=== PATIENT | male | born 1985 | race Caucasian/White ===

== ENCOUNTER 2017-08-18 19:41 | Inpatient (IN) | payer OTHER ==
[2017-08-18] MEDS ORDERED: LIDOCAINE 1% 10 ML VIAL INJ ONE (19:49)
[2017-08-18] MEDS ORDERED: ONDANSETRON INJ 4 MG/2 ML VIAL IV ONE (20:04)
[2017-08-18] MEDS ORDERED: MORPHINE SULFATE INJ 10 MG/ML VIAL IV ONE (20:04)
[2017-08-18] MEDS ORDERED: CLINDAMYCIN IV 600MG 600 MG in PREMIX BAG 1 BAG IVPB ONE (20:05)
--- NOTE | 2017-08-18 20:08 | ED.PDOC ---
History of Present Illness - General Chief Complaint: Skin/Abrasion/Tear Stated Complaint: spider bite to groin Time Seen by Provider: 08/18/17 19:46 Source: patient - History of Present Illness Timing/Duration: other - three days Severity: severe Location: genitalia - bilateral inguinal swelling and wounds Improving Factors: nothing Worsening Factors: movement Associated Symptoms: swelling/mass/lumps Allergies/Adverse Reactions: Allergies msg Allergy (Uncoded 08/18/17 19:59) narcotics Adverse Reaction (Uncoded 08/18/17 19:59) Home Medications: Ambulatory Orders Sulfamethoxazole-Trimethoprim [Bactrim Ds 800-160 mg] 1 tablet PO BID 08/18/17 Review of Systems - Review of Systems Constitutional: Denies: fever, weakness EENTM: States: no symptoms reported Respiratory: States: no symptoms reported Cardiology: States: no symptoms reported Gastrointestinal/Abdominal: Denies: abdominal pain, nausea, vomiting Genitourinary: States: pain - worse on L side. Denies: dysuria, frequency Musculoskeletal: States: no symptoms reported Skin: States: see HPI Neurological: States: no symptoms reported Endocrine: States: no symptoms reported Hematologic/Lymphatic: States: no symptoms reported Past Medical History (General) - Patient Medical History Hx MRSA: No - had spider bite in past - Vaccination History Hx Tetanus, Diphtheria Vaccination: - unknown - Triage Comment ED Triage Comment: left groin area hard and redenned, right side with two raised areas, not as swollen as left Family Medical History - Family History Father Family History: Unknown Physical Exam - Physical Exam General Appearance: Alert, Anxious, Obvious distress Eyes, Ears, Nose, Throat Exam: PERRL/EOMI Gastrointestinal/Abdominal: normal bowel sounds, non tender, soft Extremity: normal range of motion, non-tender, normal inspection Skin Problem Location: other - inguinal areas Skin Character: erythema, lesion - ulcerative , swelling, tenderness, warm Lymphatic: inguinal node tender (R), inguinal node tender (L) Departure - Departure Clinical Impression: Cellulitis Qualifiers: Site of cellulitis: trunk Site of cellulitis of trunk: groin Qualified Code(s) : L03.314 - Cellulitis of groin Disposition: Admit Patient Departure Forms: ED Discharge - Pt. Copy, Patient Portal Self Enrollment Instructions: DI for Abrasion Home Medications: Ambulatory Orders Sulfamethoxazole-Trimethoprim [Bactrim Ds 800-160 mg] 1 tablet PO BID 08/18/17 Decision To Admit - Decistion To Admit Decision to Admit Date: 08/18/17 Decision to Admit Time: 22:41
[2017-08-18] MEDS ORDERED: CLINDAMYCIN IV 600MG 50 ML IVPB ONE (20:12)
[2017-08-18] MEDS ORDERED: ACETAMINOPHEN 325 MG TAB PO ONE (21:21)
--- NOTE | 2017-08-18 22:26 | CT ---
EXAMINATION: POSTCONTRAST PELVIC CT EXAMINATION. REFERRAL DIAGNOSIS: Left inguinal pain and swelling. COMPARISONS: No comparisons are available. PROCEDURE: Using low-dose helical technique, thin section axial images were performed through the pelvis after the uncomplicated intravenous administration of nonionic iodinated contrast material. No oral contrast was administered. FINDINGS: Extensive left inguinal fatty inflammation without associated metallic foreign body or soft tissue gas. This subcutaneous fatty inflammation does not extend into the perineum. Suspect this inflammation extends partially into the left scrotum. No left inguinal hernia. The appendix clearly visualized and is normal. No diverticulitis or evidence of inflammatory bowel disease. The nondistended urinary bladder is grossly normal. No free pelvic fluid or evidence of psoas muscle abscess. Bones of the pelvis are normal. IMPRESSION: 1. Left inguinal fatty inflammation without radiopaque foreign body, soft tissue gas or mature abscess cavity. Inflammation does not extend into the perineum. Suspect this subcutaneous fatty inflammation extends partially into the left scrotum. 2. No evidence of appendicitis, diverticulitis, inflammatory bowel disease or free pelvic fluid. This exam was performed according to our departmental dose-optimization program, which includes automated exposure control, adjustment of the mA and/or kV according to patient size and/or use of iterative reconstruction technique. Electronically signed by: Eugenio Andrews MD 08/18/2017 10:25 PM CDT
--- NOTE | 2017-08-18 23:05 | HP ---
SUPERVISING PHYSICIAN: Efrain Velasquez MD CHIEF COMPLAINT: "Spider bite in my groin." HISTORY OF PRESENT ILLNESS: This is a 31-year-old male patient who came to the Emergency Room due to "spider bite to the groin." He notes that he had about a 3 day history of swelling and redness to bilateral groins, left greater than right. He states he has been living in a house that is pretty much infested with spiders. Yesterday, he went to see the Urgent Care and he actually got an injection and was placed on Bactrim. However, he states it started to get worse , so he came to the Emergency Room. In the Emergency Room, Dr. John did a CT of the pelvis which showed left inguinal fatty inflammation with no gas or abscess cavity. The inflammation did not extend to the peritoneum. It did state that it extended partially into the left scrotum, but due to the fact that he had worsened despite being on antibiotics and getting the antibiotic injection yesterday, he will be admitted for cellulitis which failed outpatient therapy. He states he has had a fever as well and generally not feeling well. On examination, the patient is without distress. He is alert and oriented. PAST MEDICAL HISTORY: Previous staph infections and actual I&D secondary to this on the left leg before due to "spider bites." CURRENT MEDICATIONS: He was recently placed on Bactrim, otherwise, no medications. ALLERGIES: NARCOTICS AND MSG. FAMILY HISTORY: Cardiac disease on his father's side and diabetes in his mother. SOCIAL HISTORY: The patient smokes half a pack per day. No alcohol, no illicit drugs. REVIEW OF SYSTEMS: CONSTITUTIONAL: Positive for fever and chills. No recent weight loss or weight gain. HEENT: No headaches, vision changes, ear pain or throat pain. RESPIRATORY: No cough, hemoptysis or pleuritic chest pain. CARDIOVASCULAR: No chest pain, palpitations or peripheral edema. GASTROINTESTINAL: No nausea, vomiting, diarrhea, constipation or abdominal pain. GENITOURINARY: No dysuria, frequency or flank pain. SKIN: History of staph infections in the past and the current problems as per history of present illness. HEMATOLOGIC: No easy bruising and no transfusion reaction. ENDOCRINE: No polydipsia, polyuria, polyphagia. No heat or cold intolerance. NEUROLOGIC: No syncope, paresthesias, seizures. PHYSICAL EXAMINATION: VITAL SIGNS: Blood pressure 107/54. Heart rate 97. Respiratory rate 18. Temperature 100.2. Oxygen saturation 98%. GENERAL: Mr. Meadows is a 31-year-old male patient who is in no active distress currently. HEENT: Normocephalic, atraumatic. Pupils are equal and reactive. No nasal drainage. Throat with moist mucosa. NECK: Supple. Midline trachea. No jugular venous distention. CHEST: Symmetrical with equal rise and fall of the chest with inspiration and expiration. Lung sounds are clear to auscultation bilaterally. CARDIOVASCULAR: Regular rate and rhythm. Normal S1, S2. ABDOMEN: Soft. Positive bowel sounds. GENITOURINARY: Normal external genitalia. He obviously shaves his pubic hair. He has some erythema with open pustules on the right groin which are draining a slight purulent drainage. Left groin with erythema and firmness and warmth to the touch. The area is approximately 4 cm by 2.5 cm. Tender to touch. EXTREMITIES: Lower extremities with good peripheral pulses. Capillary refill is less than 2 seconds. NEUROLOGIC: The patient is alert and oriented. Moves all extremities. Extraocular movements are intact. LABORATORY: White count 14,400, hemoglobin 13.8, hematocrit 40.7, platelet count 286. Chemistry shows sodium 136, potassium 4.0, chloride 103, CO2 24, BUN 20, creatinine 1.15, glucose 107, calcium 9.7, lactic acid 1.8. RADIOLOGY: CT results are as above. ASSESSMENT: 1. Bilateral groin cellulitis, left greater than right without CT evidence of of abscess. 2. History of methicillin-resistant Staphylococcus aureus infections requiring I&D. 3. Nicotine dependency. PLAN: At this point, the patient has been given clindamycin in the Emergency Room. It sounds like he has gotten some Bactrim as an outpatient as well as injection of probably Rocephin I would imagine. Due to failed outpatient therapy, I am going to add vancomycin as well due to his history of methicillin- resistant Staphylococcus aureus. We will reevaluate in the morning. If he has not had any improvement whatsoever, then we will probably get surgery to take a look at him even though there is no actual abscess. DVT and GI ulcer prophylaxis. #[id number] [facility]
[2017-08-18] MEDS ORDERED: SODIUM CHLORIDE 0.9% (FLUSH) 10 ML SYG IV PRN (23:18)
[2017-08-18] MEDS ORDERED: VANCOMYCIN PER PHARMACY INJ SCH (23:30)
[2017-08-19] MEDS: LACTATED RINGERS 1,000 ML IVS PRN ×2 (00:01→11:20)
[2017-08-19] MEDS ORDERED: VANCOMYCIN HCL INJ 500 MG VIAL ONE ×2 (01:46→13:33)
[2017-08-19] MEDS ORDERED: VANCOMYCIN HCL INJ 1,000 MG VIAL IVPB ONE ×2 (01:47→13:34)
[2017-08-19] MEDS ORDERED: SODIUM CHLORIDE 0.9% 250ML 250 ML ONE ×2 (01:47→13:34)
[2017-08-19] MEDS: VANCOMYCIN HCL INJ 1,000 MG, VANCOMYCIN HCL INJ 500 MG in SODIUM CHLORIDE 0.9% 250ML 25... IVPB SCH ×2 (01:55→13:40)
[2017-08-19] MEDS: IV SET AND CAP CHANGE INJ INJ SCH (01:56)
[2017-08-19] MEDS ORDERED: CLINDAMYCIN IV 600MG 50 ML IVPB ONE ×3 (04:08→17:05)
[2017-08-19] MEDS: IBUPROFEN 200 MG TAB PO PRN ×2 (04:11→20:01)
[2017-08-19] MEDS: CLINDAMYCIN IV 600MG 600 MG in PREMIX BAG 1 BAG IVPB SCH ×3 (06:04→17:54)
[2017-08-19] MEDS: ACETAMINOPHEN 325 MG TAB PO PRN ×2 (06:19→18:21)
[2017-08-19] MEDS: BIFIDOBACTERIUM INFANTIS 4 MG CAP PO SCH ×2 (10:32→20:53)
--- NOTE | 2017-08-19 10:57 | PN ---
SUPERVISING PHYSICIAN: Efrain Velasquez MD DATE: 08/19/17 SUBJECTIVE: Really no difference from admission regarding his symptoms. He is still having discomfort and pretty uncomfortable when he moves around, but he is not really requiring any pain medication either. OBJECTIVE: VITAL SIGNS: Blood pressure 125/81. Heart rate 98. Respiratory rate 18. T-max 100.2. O2 saturation 96%. GENERAL: Mr. Meadows is a 31-year-old male patient in no active distress. NEUROLOGIC: Alert and oriented. LUNGS: Clear to auscultation bilaterally. CARDIOVASCULAR: Regular rate and rhythm. Normal S1, S2. ABDOMEN: Soft. Positive bowel sounds. GENITOURINARY: Still reveals the approximately 4 by 2.5 cm area of cellulitis with warmth to the touch in the left groin. The right groin still has some cellulitis, but not to the extent as the left. EXTREMITIES: Pulses 2+. Capillary refill is less than 2 seconds. LABORATORY: Labs are reviewed and show white count 14.3, hemoglobin 12.5, hematocrit 37.8, platelet count 270. Chemistry shows sodium 136, potassium 3.8 , chloride 104, CO2 22, BUN 16, creatinine 1.15, glucose 130, calcium 9.1. ASSESSMENT: 1. Bilateral groin cellulitis, left greater than right. 2. History of methicillin-resistant Staphylococcus aureus infections requiring I&D. 3. Nicotine dependency. PLAN: We will continue the vancomycin as well as the clindamycin. We will continue to monitor his labs to ensure they are improving. I have placed an order in the computer for consult with Dr. Norris so he can evaluate and ensure that he does not feel there needs to be any surgical intervention. As stated before, the CT does not reveal any pockets of abscess, however, this is a pretty aggressive looking cellulitis, so I would feel better if surgery evaluated. I have called his office, but there was no answer at the time, so I am going to continue to try to get a hold of Dr. Norris. #[id number] [facility]
--- NOTE | 2017-08-19 17:15 | CONS ---
HISTORY OF PRESENT ILLNESS: The patient is a 31 year-old male complaining of tender masses in both groins, the right groin has drained, the left groin has not drained, it is quite tender. 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 He was on Bactrim as an outpatient and has not improved, in fact, he has worsened with fever and general feeling of ill health. PAST MEDICAL HISTORY: Unremarkable other than the infections associated with spider bites on his left leg. CURRENT MEDICATIONS: He takes no medications other than the Bactrim as an outpatient. ALLERGIES: NARCOTICS AND MSG FAMILY HISTORY: Positive for diabetes and coronary artery disease. SOCIAL HISTORY: The patient is , father of 3, works in the [employer] business. Previous active duty [employer]. He smokes half a pack of cigarettes a day and is trying to quit. He does not use alcohol or drugs. REVIEW OF SYSTEMS: Unremarkable except as that in the history of present illness. He denies nausea or vomiting or change in his bowel habits. No chest pain, shortness of breath, denies urinary symptoms. PHYSICAL EXAMINATION: GENERAL: The patient is awake and alert, currently afebrile and normotensive. HEENT: Sclera nonicteric and mucous membranes are moist. NECK: Without adenopathy. BACK: Without CVA tenderness. CHEST: There is normal chest wall expansion bilaterally. EXTREMITIES: Without cyanosis, clubbing, or edema. ABDOMEN: Soft, non-tender. GROIN AREA: The left groin reveals an area of induration which involves the tissue medial and above the inguinal fold. It is firm without fluctuance or crepitance. There is no drainage even though there seems to be an area of a small sinus tract. On the right side, the area is much smaller and it has drained from two places and cultures are pending from that. LABORATORY: White count 14.4, hemoglobin 13.8. His potassium was 4, creatinine 1.15. CT scan of the inguinal area revealed no hernias, no abscesses or infected lymph nodes. It is noted that his urine is quite dark. IMPRESSION: 1. Cellulitis of the left an right groins with 2 draining areas on the right, non on the left. 2. History of methicillin resistant staph aureus. 3. Nicotine dependency. The patient is now on vancomycin and clindamycin. Culture is pending. Will continue local care and add twice a day showers to wash these areas. #[id number] [facility]
[2017-08-20] MEDS ORDERED: VANCOMYCIN HCL INJ 500 MG VIAL ONE ×2 (00:12→13:32)
[2017-08-20] MEDS ORDERED: CLINDAMYCIN IV 600MG 50 ML IVPB ONE ×5 (00:12→19:31)
[2017-08-20] MEDS ORDERED: SODIUM CHLORIDE 0.9% 250ML 250 ML ONE ×2 (00:13→13:32)
[2017-08-20] MEDS ORDERED: VANCOMYCIN HCL INJ 1,000 MG VIAL IVPB ONE ×2 (00:13→13:33)
[2017-08-20] MEDS: CLINDAMYCIN IV 600MG 600 MG in PREMIX BAG 1 BAG IVPB SCH ×5 (00:15→23:52)
[2017-08-20] MEDS: VANCOMYCIN HCL INJ 1,000 MG, VANCOMYCIN HCL INJ 500 MG in SODIUM CHLORIDE 0.9% 250ML 25... IVPB SCH ×2 (01:51→13:34)
[2017-08-20] MEDS: IBUPROFEN 200 MG TAB PO PRN ×3 (01:54→21:30)
[2017-08-20] MEDS: LACTATED RINGERS 1,000 ML IVS PRN (06:05)
[2017-08-20] MEDS: BIFIDOBACTERIUM INFANTIS 4 MG CAP PO SCH ×2 (08:41→21:29)
--- NOTE | 2017-08-20 09:14 | PN ---
SUPERVISING PHYSICIAN: Efrain Velasquez MD DATE: 08/20/17 SUBJECTIVE: The patient feels like the wounds in his groin are better although he is more worried about the right side than the left. They are both draining and although they still hurt quite a bit, at least he can sit up and he can move his legs. He denies any nausea or vomiting, chest pain or shortness of breath. 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 At this point, his discharge date is undetermined and we will assist him in making alternative plans depending on his progress. OBJECTIVE: VITAL SIGNS: Afebrile. Heart rate 82. Blood pressure 100/60. Respiratory rate 18. O2 saturation 95% on room air. RESPIRATORY: Essentially clear to auscultation bilaterally. CARDIAC: Regular rate and rhythm. GASTROINTESTINAL: Abdomen is soft, nondistended, nontender. Bowel sounds are positive. SKIN: The left groin has an area with a hardened area of tissue in the inguinal fold. It looks like there is a tiny amount of purulent drainage from that area. It has some erythema, but the area of erythema is smaller than previously marked area on the left groin. On the right groin, there are two smaller areas of induration with a small amount of purulent drainage. Cultures are still pending. LABORATORY: His WBCs are 11.8, hemoglobin 12.1, hematocrit 36. ESR 69. Neutrophils 69.7. Electrolytes are within normal limits with the exception of his glucose is slightly high at 113 and CRP is 10.4. Preliminary blood culture show no growth after 24 hours. His wound culture is pending. All other labs and films have been reviewed via the EMR. ASSESSMENT: 1. Bilateral groin cellulitis, left greater than right. 2. History of methicillin-resistant Staphylococcus aureus infections requiring I&D. 3. Nicotine dependency. PLAN: We will continue present supportive care including continuing with the vancomycin and the clindamycin. We will monitor the labs and I will repeat those in the morning. We are still awaiting culture results on the wound. Dr. Norris is still following him from a wound perspective. We will assist him in any way possible to help him with his flight plans on Friday to [place]. Otherwise, we will continue to monitor the patient closely and follow as needed. Dr. Velasquez is the collaborating physician and available for consultation. #[id number] [facility]
[2017-08-20] MEDS: ACETAMINOPHEN 325 MG TAB PO PRN (17:05)
[2017-08-21] MEDS ORDERED: VANCOMYCIN HCL INJ 500 MG VIAL ONE ×2 (00:53→11:46)
[2017-08-21] MEDS ORDERED: VANCOMYCIN HCL INJ 1,000 MG VIAL IVPB ONE ×2 (00:54→11:47)
[2017-08-21] MEDS ORDERED: SODIUM CHLORIDE 0.9% 250ML 250 ML ONE ×2 (00:54→11:47)
[2017-08-21] MEDS: VANCOMYCIN HCL INJ 1,000 MG, VANCOMYCIN HCL INJ 500 MG in SODIUM CHLORIDE 0.9% 250ML 25... IVPB SCH ×2 (01:35→14:00)
[2017-08-21] MEDS ORDERED: CLINDAMYCIN IV 600MG 50 ML IVPB ONE ×4 (03:58→19:58)
[2017-08-21] MEDS: CLINDAMYCIN IV 600MG 600 MG in PREMIX BAG 1 BAG IVPB SCH ×3 (05:41→18:35)
[2017-08-21] MEDS: BIFIDOBACTERIUM INFANTIS 4 MG CAP PO SCH ×2 (09:36→20:54)
[2017-08-21] MEDS: LACTATED RINGERS 1,000 ML IVS PRN (12:00)
[2017-08-21] MEDS: IBUPROFEN 200 MG TAB PO PRN ×2 (15:27→20:54)
--- NOTE | 2017-08-21 20:25 | PN ---
DATE: 08/21/17 SUPERVISING PHYSICIAN: Efrain Velasquez M.D. SUBJECTIVE: The patient is lying in bed. He is in no acute distress. He denies chest pain, nausea, vomiting or diarrhea. He does complain that his groin hurts but it continues to improve and it is draining on both sides. Dr. Norris has examined the patient and actually was able to get some drainage from the left groin abscess. We discussed his discharge plan. We are waiting for sensitivities from his wound culture so that we can hopefully discharge him on oral antibiotics. OBJECTIVE: VITAL SIGNS: Temperature 98.2, heart rate 68, blood pressure 117/72 , respiratory rate 18, O2 sat 94% on room air. RESPIRATORY: Essentially clear to auscultation bilaterally. CARDIAC: Regular rate and rhythm. GASTROINTESTINAL: Abdomen is soft, nondistended, non-tender. Bowel sounds are positive. SKIN: The left groin has a hardened area of tissue that is draining more than it did yesterday. It is draining purulent fluid. There is also 2 smaller areas of induration with a small amount of drainage to the right groin. NEUROLOGIC: He is awake, alert and oriented times three. LABORATORY: WBCs are normal at 9.6, hemoglobin 12, hematocrit 35.3. Chemistries are basically within normal limits. Preliminary blood cultures show no growth after 48 hours and his preliminary wound culture shows Staphylococcus aureus. All other labs and films have been reviewed via the EMR. ASSESSMENT: 1. Bilateral groin cellulitis, left greater than right. Preliminary culture showed Staphylococcus aureus. 2. History of methicillin-resistant Staphylococcus aureus infections requiring I&D. 3. Nicotine dependency. PLAN: We will continue present supportive care. Will hold on lab for in the morning as his lab has normalized, including his white count. Dr. Norris has instructed him to take warm showers as well as frequent ambulation. We are awaiting sensitivities from his culture report and hopefully we can discharge him as soon as those are available on some p.o. antibiotics. He will need close followup at discharge. Will continue to monitor him closely and follow as needed. Dr. Velasquez is the collaborating physician available for consultation. [facility][id number] [facility]
[2017-08-21] MEDS: IV SET AND CAP CHANGE INJ INJ SCH (23:30)
[2017-08-22] MEDS: CLINDAMYCIN IV 600MG 600 MG in PREMIX BAG 1 BAG IVPB SCH ×2 (00:14→05:44)
[2017-08-22] MEDS ORDERED: VANCOMYCIN HCL INJ 500 MG VIAL ONE (01:42)
[2017-08-22] MEDS ORDERED: SODIUM CHLORIDE 0.9% 250ML 250 ML ONE (01:43)
[2017-08-22] MEDS ORDERED: VANCOMYCIN HCL INJ 1,000 MG VIAL IVPB ONE (01:43)
[2017-08-22] MEDS: VANCOMYCIN HCL INJ 1,000 MG, VANCOMYCIN HCL INJ 500 MG in SODIUM CHLORIDE 0.9% 250ML 25... IVPB SCH (01:55)
[2017-08-22] MEDS ORDERED: CLINDAMYCIN IV 600MG 50 ML IVPB ONE (03:46)
[2017-08-22] MEDS: BIFIDOBACTERIUM INFANTIS 4 MG CAP PO SCH (09:27)
[2017-08-22 10:21] VITALS: BP 110/71; TEMP 97.8; O2SAT 96
--- NOTE | 2017-08-22 15:27 | DS ---
SUPERVISING PHYSICIAN: Efrain Velasquez M.D. DISCHARGE DIAGNOSIS: 1. Bilateral groin cellulitis, left greater than right. Preliminary culture showed Staphylococcus aureus sensitive to doxycycline and Bactrim. 2. History of methicillin-resistant Staphylococcus aureus infections requiring I&D. 3. Nicotine dependency. HISTORY OF PRESENT ILLNESS: This is a 31-year-old male patient who came to the Emergency Room due to a "spider bite to the groin." He had about a 3 day history of swelling and redness to bilateral groins, his left was worse than the right. He said that he had been living in a house that was pretty much infested with spiders. He had gone to the Urgent Care and actually got an injection and was placed on Bactrim, but the symptoms and the drainage got progressively worse so he came to the Emergency Room. A CT of the pelvis was done that showed a left inguinal fatty inflammation with no gas or abscess cavity. The inflammation did not extend to the peritoneum. It did state that it extended partially into the left scrotum, but due to the fact that he had worsened despite being on antibiotics and getting the antibiotic injection on the previous day, he was admitted for cellulitis with failed outpatient therapy. He had had a fever and was generally feeling poorly. He was admitted to the hospital. HOSPITAL COURSE: The patient was placed on vancomycin as well as clindamycin. He was given fluids. Dr. Norris was consulted. His white count was 14.4 on admission and it stabilized down to 9.6 yesterday. At one point his neutrophils were 81.1% but today are 65.7%. His ESR was 69. Electrolytes were basically within normal limits during his hospital stay, but his C reactive protein was elevated at 10.4. His final wound culture came back late last night and showed sensitivities to vancomycin but resistant to clindamycin, but it also showed sensitivities to Bactrim and doxycycline. He will be discharged on doxycycline and Bactrim. His vital signs have remained stable. Wound care instructions were given to him per Dr. Norris. DISCHARGE PLAN: The patient will be discharged home in stable condition. He is to continue his probiotic as well as his doxycycline and Bactrim. He is to continue wound care as instructed by Dr. Norris. He has a followup with Ermelinda Daly next week on 08/28/17 at 10:00 AM. He is to return to the hospital or followup with [facility] for any further problems or complications. He is to resume his previous activity and his home medications. DISCHARGE MEDICATIONS: 1. Bactrim. 2. Align. 3. Doxycycline. Dr. Velasquez is the collaborating physician available for consultation. #[id number] [facility]
== END 2017-08-22 10:45 | disposition home or self-care (01) | DRG 603 ==
LOC: ER 19:41 → MS 23:03 → OBSVTOIN 23:03
PROVIDERS: ADMIT Nurse Practitioner; ATTEND Nurse Practitioner Acute Care
PROC: BR2 Imaging, Axial Skeleton, Except Skull and Facial Bones, Computerized Tomography (CT Scan) (ICD-10-PCS; principal; 2017-08-18)
DX: L03.314 Cellulitis of groin (principal); L02.214 Cutaneous abscess of groin; B95.61 Methicillin susceptible Staphylococcus aureus infection as the cause of diseases classified elsewhere; F17.210 Nicotine dependence, cigarettes, uncomplicated; Z88.5 Allergy status to narcotic agent; Z86.14 Personal history of Methicillin resistant Staphylococcus aureus infection